=== PATIENT | male | born 1965 | race Caucasian/White ===

== ENCOUNTER 2016-06-19 03:03 | Emergency (ER) | payer MEDICAID, OTHER ==
[2016-06-19 03:50] LABS: Hematocrit 42 % (42-52); Hemoglobin 14.4 g/dl (14.0-18.0); Mean Corpuscular HGB Conc 35 g/dl (31-36); Mean Corpuscular Hemoglobin 32 pg (27-31); Mean Corpuscular Volume 91 fL (80-94); Mean Platelet Volume 8 um3 (7.4-10.4); Red Blood Count 4.56 10^6/ul (4.0-5.4); Red Cell Distribution Width 14 % (10.5-15); White Blood Count 12.9 10^3/ul (3.5-10.8)
[2016-06-19 03:59] LABS: ALT 28 U/L (7-52); AST 22 U/L (13-39); Albumin 4.2 g/dL (3.2-5.2); Alkaline Phosphatase 76 U/L (34-104); Anion Gap 6 mmol/L (2-11); BUN/Creatinine Ratio 18.8 (8-20); Blood Urea Nitrogen 15 mg/dL (6-24); CO2 Carbon Dioxide 29 mmol/L (22-32); Calcium 9.4 mg/dL (8.6-10.3); Chloride 102 mmol/L (101-111); EGFR African American 131.1 (>60); EGFR Non-African American 101.9 (>60); Globulin 2.9 g/dL (2-4); Glucose 119 mg/dL (70-100); Potassium 3.7 mmol/L (3.5-5.0); Sodium 137 mmol/L (133-145); Total Protein 7.1 g/dL (6.4-8.9)
[2016-06-19 04:48] LABS: Alcohol < 10 mg/dL (<10)
[2016-06-19 06:17] VITALS: BP 130/77
--- NOTE | 2016-06-19 08:03 | RAD ---
HISTORY: Fall, head injury COMPARISONS: None TECHNIQUE: Multiple contiguous axial CT scans were obtained of the head without intravenous contrast. FINDINGS: HEMORRHAGE/INFARCT: There is no hemorrhage or acute infarct. MASSES/SHIFT: There is no mass or shift. EXTRA-AXIAL SPACES: There are no extra-axial fluid collections. SULCI AND VENTRICLES: The sulci and ventricles are normal in size and position for the patient's stated age. CEREBRUM: There are no focal parenchymal abnormalities. BRAINSTEM: There are no focal parenchymal abnormalities. CEREBELLUM: There are no focal parenchymal abnormalities. VESSELS: The vessels are grossly normal. PARANASAL SINUSES: There is mucosal thickening of the maxillary sinuses, with an air-fluid level in the left maxillary sinus ORBITS: The orbits are unremarkable. BONES AND SOFT TISSUE: No bone or soft tissue abnormalities are noted. OTHER: None IMPRESSION: NO ACUTE INTRACRANIAL PATHOLOGY. MILD SINUS MUCOSAL INFLAMMATORY DISEASE, WITH AN AIR-FLUID LEVEL IN THE LEFT MAXILLARY SINUS. IN THE CORRECT CLINICAL SETTING, THIS MAY REPRESENT ACUTE SINUSITIS
--- NOTE | 2016-06-19 08:05 | RAD ---
Indication: Fall, chest injury. Single frontal view of the chest performed at 0316 hours was reviewed. Comparison is made with previous exam dated July 27, 2014. No mediastinal shift is noted. Heart is of normal size and configuration. Lung bhakta appear clear. Chronic pleural changes are noted in the right costophrenic angle. IMPRESSION: NO ACTIVE CARDIOPULMONARY DISEASE IS NOTED.
--- NOTE | 2016-06-19 08:07 | RAD ---
HISTORY: Fall, head injury COMPARISONS: MRI of the cervical spine dated November 02, 2013 TECHNIQUE: Multiple contiguous axial CT scans were obtained of the cervical spine without intravenous contrast, with coronal and sagittal multiplanar reformations. FINDINGS: BRAIN: The visualized brain is unremarkable CENTRAL CANAL: Evaluation of the central canal is limited on CT technique; however, there is no obvious canalicular mass or epidural hemorrhage. ALIGNMENT: There is straightening of the cervical lordosis. VERTEBRAL BODIES: There is multilevel anterolateral marginal osteophyte formation JOINTS: There is osteoarthritis of the atlantoaxial articulation. There is uncovertebral hypertrophy and mild facet hypertrophy. MUSCULATURE: Unremarkable INTERVERTEBRAL DISCS: There is diffuse loss of intervertebral disc height. AXIAL IMAGES: There is no osseous central canal stenosis. There is mild neuroforaminal narrowing on the right at C5-C6 and C6-C7 SOFT TISSUES: The visualized soft tissues of the neck are unremarkable. The prevertebral fat stripe is preserved. OTHER: None. IMPRESSION: 1. STRAIGHTENING OF THE CERVICAL LORDOSIS. 2. MILD DEGENERATIVE DISC DISEASE AND OSTEOARTHRITIS. 3. NO ACUTE OSSEOUS INJURY TO THE CERVICAL SPINE
--- NOTE | 2016-06-19 08:08 | RAD ---
INDICATION: Left shoulder injury. TECHNIQUE: 3 views of the left shoulder were obtained. FINDINGS: The bones are in normal alignment. No fracture is seen. There is mild osteoarthritic change in the glenohumeral joint. IMPRESSION: NO EVIDENCE OF FRACTURE.
--- NOTE | 2016-06-20 15:07 | ED ---
Carlos Mason Alok, scribed for Dawood Montoya MD on 06/19/16 at 0530 . Adult Trauma - HPI Summary HPI Summary: 51 y/o male presents to the ED BIBA following fall at 2400. Pt reportedly fell asleep while sitting smoking a cigarette at the top of a stair well, causing him to fall and hit his head on the concrete below. Pt reports left shoulder pain currently. Pt denies any dizziness prior to falling nor LOC afterwards. Pt denies any CP or SOB. - History of Current Complaint Chief Complaint: EDHeadInjury Stated Complaint: FALL/HEAD INJURY Time Seen by Provider: 06/19/16 03:11 Hx Obtained From: Patient Mechanism of Injury: Fall Ambulatory at the Scene: Yes Loss of Consciousness: no loss of consciousness Onset/Duration: Started Hours Ago, Traumatic, Still Present Onset of Pain: Immediate Onset Severity: Moderate Current Severity: Moderate Pain Intensity: 5 Pain Scale Used: 0-10 Numeric Location: Head Aggravating Factor(s): Nothing Alleviating Factor(s): Nothing Associated Signs & Symptoms: Positive: Other: - Left shoulder pain. Negative: SOB, Chest Pain, Loss of Consciousness - Allergy/Home Medications Allergies/Adverse Reactions: Allergies Allergy/AdvReac Type Severity Reaction Status Date / Time No Known Allergies Allergy Verified 05/21/16 08:39 PMH/Surg Hx/FS Hx/Imm Hx Endocrine/Hematology History: Denies: Hx Anticoagulant Therapy, Hx Diabetes Cardiovascular History: Denies: Hx Hypertension, Hx Pacemaker/ICD Respiratory History: Reports: Hx Asthma - KID, UNTIL PNEUMOTHORAX, Other Respiratory Problems/Disorders - Lung Surgery as child Denies: Hx Chronic Obstructive Pulmonary Disease (COPD) GI History: Reports: Hx Gastroesophageal Reflux Disease Musculoskeletal History: Reports: Hx Back Problems Sensory History: Denies: Hx Hearing Aid Neurological History: Reports: Other Neuro Impairments/Disorders - PAIN CLINIC PT Psychiatric History: Denies: Hx Panic Disorder - Surgical History Surgery Procedure, Year, and Place: LSP L-4 Back Surgery; Lung Surgery as a child, Hernia Infectious Disease History: No Infectious Disease History: Denies: Traveled Outside the [place] in Last 30 Days - Family History Known Family History: Negative: Cardiac Disease, Diabetes - Social History Occupation: Unemployed Alcohol Use: None Substance Use Type: Reports: None Substance Use Comment - Amount & Last Used: percocet/tramadol Hx Tobacco Use: Yes Smoking Status (MU): Current Every Day Smoker Type: Cigarettes Amount Used/How Often: 1 PPD Have You Smoked in the Last Year: Yes Review of Systems Negative: Fever, Chills Negative: Erythema Negative: Sore Throat Negative: Chest Pain Negative: Shortness Of Breath, Cough Negative: Abdominal Pain, Vomiting, Nausea Negative: dysuria, hematuria Musculoskeletal: Other - Left Shoulder Pain Negative: Myalgia, Edema Negative: Rash Neurological: Other - Negative: Dizziness All Other Systems Reviewed And Are Negative: Yes Physical Exam - Summary Physical Exam Summary: Constitutional: Well-developed, Well-nourished, Alert, Cooperative Skin: Warm, Dry HENT: Normocephalic; No Racoons eyes; No battles sign; No contusion; No hemotympanum; No maxilla facial tenderness or instability; Dentition are smooth ; No dental trauma; No trismus. Left frontal scalp laceration. Eyes: EOM normal, PERRL Neck: Trachea is midline. No stridor; No JVD; No step off; No posterior cervical spine tenderness Cardio: Rhythm regular, rate normal Heart sounds normal; Intact distal pulses; The pedal pulses are 2+ and symmetric. Radial pulses are 2+ and symmetric. Pulmonary/Chest wall: Effort normal; Breath sounds normal; Equal chest rise; No flail segment; No rib tenderness; No sternal tenderness Abd: Soft, Appearance normal. No distension; No tenderness; No palpable pulsatile mass; No Cullens sign; No Morris-Turners sign Musculoskeletal: Full ROM and no tenderness at hips, ankles, elbows and knees; No joint swelling; No vertebral body tenderness; No paraspinal tenderness; No step off or deformity of the spine; Pelvis is stable to lateral compression and rock. Left shoulder tenderness. Neuro: Alert, Oriented x3, Strength 5/5 all extremities. : No blood at urethral meatus Psych: Mood and affect Normal Triage Information Reviewed: Yes Vital Signs On Initial Exam: Initial Vitals Temp Pulse Resp BP Pulse Ox 98.1 F 99 16 145/86 96 06/19/16 03:08 06/19/16 03:08 06/19/16 03:08 06/19/16 03:08 06/19/16 03:08 Vital Signs Reviewed: Yes - Michael Coma Scale Coma Scale Total: 15 Diagnostics - Vital Signs Vital Signs Temp Pulse Resp BP Pulse Ox 06/19/16 05:00 88 13 106/72 94 06/19/16 04:30 82 11 133/76 96 06/19/16 04:00 93 13 97 06/19/16 03:30 103 15 150/84 95 06/19/16 03:10 105 98 06/19/16 03:09 145/86 06/19/16 03:08 98.1 F 99 16 145/86 96 - Laboratory Lab Results: Lab Results 06/19/16 06/19/16 06/19/16 Range/Units 03:30 03:30 03:30 WBC 12.9 H (3.5-10.8) 10^3/ul RBC 4.56 (4.0-5.4) 10^6/ul Hgb 14.4 (14.0-18.0) g/dl Hct 42 (42-52) % MCV 91 (80-94) fL MCH 32 H (27-31) pg MCHC 35 (31-36) g/dl RDW 14 (10.5-15) % Plt Count 258 (150-450) 10^3/ul MPV 8 (7.4-10.4) um3 Neut % (Auto) 73.1 (38-83) % Lymph % (Auto) 11.3 L (25-47) % Bent % (Auto) 11.2 H (1-9) % Eos % (Auto) 3.6 (0-6) % Baso % (Auto) 0.8 (0-2) % Absolute Neuts (auto) 9.4 H (1.5-7.7) 10^3/ul Absolute Lymphs (auto) 1.5 (1.0-4.8) 10^3/ul Absolute Monos (auto) 1.4 H (0-0.8) 10^3/ul Absolute Eos (auto) 0.5 (0-0.6) 10^3/ul Absolute Basos (auto) 0.1 (0-0.2) 10^3/ul Absolute Nucleated RBC 0.01 10^3/ul Nucleated RBC % 0.1 Sodium 137 (133-145) mmol/L Potassium 3.7 (3.5-5.0) mmol/L Chloride 102 (101-111) mmol/L Carbon Dioxide 29 (22-32) mmol/L Anion Gap 6 (2-11) mmol/L BUN 15 (6-24) mg/dL Creatinine 0.80 (0.67-1.17) mg/dL Est GFR ( Amer) 131.1 (>60) Est GFR (Non-Af Amer) 101.9 (>60) BUN/Creatinine Ratio 18.8 (8-20) Glucose 119 H (70-100) mg/dL Lactic Acid 2.0 (0.5-2.0) mmol/L Calcium 9.4 (8.6-10.3) mg/dL Total Bilirubin 0.50 (0.2-1.0) mg/dL AST 22 (13-39) U/L ALT 28 (7-52) U/L Alkaline Phosphatase 76 (34-104) U/L Total Protein 7.1 (6.4-8.9) g/dL Albumin 4.2 (3.2-5.2) g/dL Globulin 2.9 (2-4) g/dL Albumin/Globulin Ratio 1.4 (1-3) Serum Alcohol < 10 (<10) mg/dL Result Diagrams: 06/19/16 03:30 06/19/16 03:30 Lab Statement: Any lab studies that have been ordered have been reviewed, and results considered in the medical decision making process. - Radiology CXR Xray Interpretation: Positive (See Comments) - IMPRESSION: NO ACUTE DISEASE Radiology Interpretation Completed By: ED Physician Shoulder XRAY Xray Interpretation: Positive (See Comments) - IMPRESSION: NO ACUTE DISEASE Radiology Interpretation Completed By: ED Physician - CT Spine CT CT Interpretation: Positive (See Comments) - IMPRESSION: NO FRACTURE OR LISTHESIS SEEN. CT Interpretation Completed By: Radiologist Brain CT CT Interpretation: Positive (See Comments) - IMPRESSION: NO EVIDENCE OF HEMORRHAGE, ACUTE TERRITORIAL INFARCTION, MASS EFFECT, MIDLINE SHIFT, HYDROCEPHALUS, OR EXTRA-AXIAL COLLECTIONS. RIGHT PARIETAL CONVEXITY SCALP SWELLING. LEFT FRONTAL SCALP SWELLING WITH AN ACCOMPANYING SOFT TISSUE LACERATION. NO SKULL FRACTURE. MODERATE BILATERAL ETHMOID SINUS MUCOPERIOSTEAL THICKENING AND A SMALL FLUID LEVEL WITHIN THE LEFT MAXILLARY SINUS. CHUY BULLOSA OF THE LEFT MIDDLE TURBINATE. CT Interpretation Completed By: Radiologist Re-Evaluation - Re-Evaluation First Eval Re-Evaluation Time: 05:30 Change: Improved - ambulatory Adult Trauma Course/Dx - Diagnoses Provider Diagnoses: mechanical fall, Scalp hematoma Discharge - Discharge Plan Condition: Stable Disposition: HOME Patient Education Materials: Fall Prevention (ED), Hematoma (ED) Referrals: Dominick AGUIRRE,Jonathon Vera [Primary Care Provider] - 3 Days Additional Instructions: Please follow up with your primary care provider in 3 days. Tylenol or Motrin are needed for pain. The documentation as recorded by the Carlos alamo Alok accurately reflects the service I personally performed and the decisions made by , Dawood Montoya MD.
== END 2016-06-19 06:17 | disposition home or self-care (01) ==
LOC: ED 03:03
DX: S00.03XA Contusion of scalp, initial encounter (principal); M19.91 Primary osteoarthritis, unspecified site; M50.30 Other cervical disc degeneration, unspecified cervical region; M25.512 Pain in left shoulder; F17.210 Nicotine dependence, cigarettes, uncomplicated; W19.XXXA Unspecified fall, initial encounter; Y93.89 Activity, other specified; Y92.9 Unspecified place or not applicable
CPT/HCPCS: 36415; 70450; 71010; 72125; 80053; 80320; 83605; 85025; 99282; G0480